=== PATIENT | male | born 1990 | race Caucasian/White ===

== ENCOUNTER 2021-01-16 12:13 | Emergency (ER) | payer MEDICAID ==
[~2021-01-16] VITALS: Ht 180.3 cm; Wt 86.4 kg
[2021-01-16 13:38] LABS: BASOPHILS # (AUTO) 0.1 X10'3 (0-0.2); BASOPHILS % (AUTO) 0.6 % (0-1); EOSINOPHILS % (AUTO) 0.5 % (0-6); HEMATOCRIT 45.8 % (42.0-52.0); HEMOGLOBIN 15.6 g/dl (14.0-17.9); LYMPHOCYTES # (AUTO) 1.3 X10'3 (1.1-4.8); LYMPHOCYTES % (AUTO) 13.8 % (21-51); MEAN CORPUSCULAR HEMOGLOBIN 30.2 PG (27.0-31.0); MEAN CORPUSCULAR HGB CONC 34.2 g/dL (33.0-36.5); MEAN CORPUSCULAR VOLUME 88.3 FL (78-98); MEAN PLATELET VOLUME 7.6 FL (7.4-10.4); MONOCYTES # (AUTO) 0.5 X10'3 (0-0.9); MONOCYTES % (AUTO) 5.2 % (2-12); NEUTROPHILS # (AUTO) 7.8 X10'3 (1.8-7.7); NEUTROPHILS % (AUTO) 79.9 % (42-75); PLATELET COUNT 345 X10'3 (140-440); RED BLOOD COUNT 5.18 X10'6 (4.70-6.10); RED CELL DISTRIBUTION WIDTH 13.2 % (11.5-14.5); WHITE BLOOD COUNT 9.8 X10'3 (4.5-11.0)
[2021-01-16 13:54] LABS: ALANINE AMINOTRANSFERASE 126 U/L (12-78); ALBUMIN 4.6 G/DL (3.4-5.0); ALBUMIN/GLOBULIN RATIO 1.2 (1.1-1.5); ALKALINE PHOSPHATASE 78 IU/L (46-116); ANION GAP 13 (8-16); ASPARTATE AMINO TRANSFERASE 53 U/L (10-37); BILIRUBIN,TOTAL 0.6 MG/DL (0.1-1.0); BLOOD UREA NITROGEN 12 MG/DL (7-18); BUN/CREATININE RATIO 10.6 (5.4-32.0); CALCIUM 9.5 MG/DL (8.5-10.1); CHLORIDE 108 MMOL/L (99-107); CREATININE 1.13 MG/DL (0.60-1.10); ETHANOL < 0.010 GM/DL (0.0-0.010); GLUCOSE 114 MG/DL (70-104); POTASSIUM 3.9 MMOL/L (3.5-5.1); SODIUM 144 MMOL/L (135-145); TOTAL CARBON DIOXIDE 23.3 MMOL/L (24-32); TOTAL PROTEIN 8.4 G/DL (6.4-8.2); eGFR 76 ML/MIN
[2021-01-16 13:55] VITALS: BP 129/85
[2021-01-16 14:36] LABS: URINE AMPHETAMINE SCREEN NEGATIVE (Neg); URINE BARBITUATE SCREEN NEGATIVE (Neg); URINE BENZODIAZEPINES SCREEN NEGATIVE (Neg); URINE CANNABINOID SCREEN NEGATIVE (Neg); URINE COCAINE SCREEN NEGATIVE (Neg); URINE METHADONE SCREEN NEGATIVE (Neg); URINE OPIATE SCREEN NEGATIVE (Neg); URINE PHENCYCLIDINE SCREEN NEGATIVE (Neg)
--- NOTE | 2021-01-16 14:57 | NUR ---
[employer]IT[employer]PER[employer] PICKED UP THROWING KNIVES
[2021-01-16] MEDS ORDERED: MULT-227 PO (14:59)
[2021-01-16] MEDS ORDERED: 5-HY100C PO (14:59)
--- NOTE | 2021-01-16 18:50 | NUR ---
Assumed care of patient, received report from Barbara DELCID, introduced myself to the patient and he had no needs at this time except for wanting dinner.
--- NOTE | 2021-01-16 19:45 | NUR ---
Met with patient for assessment, he continues to make delusional statements that are paranoid in nature, refers to "them always doing things to me", refers to navid, talks about people monitoring him thru his cell phone, that they "know I am coming from the ping on my phone and then they switch the food out and give me things with no nutrients, like the milk, its a different color, I can tell." When I asked if he had ever seen mental health he said no, but later talked about seeing psychologists and therapists and that he has been called "Schizo", "but I am not, I am just playing the cards" denies hallucinations. Pt has no other complaints, spoke with [facility] and they will not be able to assess patient until tomorrow.
--- NOTE | 2021-01-16 19:45 | NUR ---
Review of patients 5150 states pt is DTS, police were called because pt was walking in the road and multiple cars were honking at the patient and he would not move, he continued to walk in traffic even after the police tried to direct him to get off the road, he told the police he couldn't see the cars because he was in an alternate universe, he also stated the cars always "yell" at him.
--- NOTE | 2021-01-16 21:20 | NUR ---
Berenice alexander in [facility] - 01/17/21 at 0414 by KASSY Pt reported improvement in headache without Tylenol.
--- NOTE | 2021-01-16 21:48 | NUR ---
Pt is interacting with me at this time, is appropriate, but continues to make delusional statements, no agitation. He is complaining of a H/A and is requesting some Tylenol for a headache. Will notify .
--- NOTE | 2021-01-16 22:20 | NUR ---
Pt reports improvement in H/A without use of Tylenol.
[2021-01-17] MEDS ORDERED: NO HOME MEDS (00:15)
--- NOTE | 2021-01-17 00:19 | NUR ---
Pt resting comfortably at this time, no complaints
--- NOTE | 2021-01-17 01:54 | NUR ---
Pt is sleeping at this time
--- NOTE | 2021-01-17 04:12 | NUR ---
Pt continues to sleep at this time, appears in no distress.
--- NOTE | 2021-01-17 07:00 | NUR ---
Received pt lying in bed with his eyes closed, in no apparent distress, appearing asleep.
--- NOTE | 2021-01-17 07:12 | NUR ---
PACKET FAXED TO [facility]
--- NOTE | 2021-01-17 09:00 | NUR ---
Pt awoke and used the bathroom and gave urine sample. Pt is polite and cooperative and is agreeable with am assessment. Pt is hyperverbal and tangential. Thought content is mostly delusional with paranoid thoughts that people have been "gas lighting" him. Just messing with him and taking the nutrients out of his food.
[2021-01-17 09:21] LABS: CLARITY,URINE CLEAR (Clear); COLOR,URINE YELLOW (Yellow); GLUCOSE, URINE NEGATIVE (Neg); KETONES,URINE NEGATIVE (Neg); LEUKOCYTE ESTERASE ,URINE NEGATIVE (Neg); NITRITES, URINE NEGATIVE (Neg); OCCULT BLOOD,URINE NEGATIVE (Neg); PH,URINE 6.5 (4.8-8.0); PROTEIN,URINE NEGATIVE (Neg); UROBILINOGEN,URINE 0.2 E.U/dL (0.2-1.0)
[2021-01-17 09:25] LABS: UA COLLECTION TYPE CLN CATCH MIDSTREAM
--- NOTE | 2021-01-17 11:00 | NUR ---
Pt cooperative with assessment by [facility]. Pt directed alliance consultant to contact his mom or grandmother, but contact was unable to be made and thus [facility] found pt to be danger to self and upheld the 5150. Pt agreeable to placement at mental health facility.
--- NOTE | 2021-01-17 12:32 | NUR ---
PT HAS BEEN ACCEPTED TO [facility].
--- NOTE | 2021-01-17 13:00 | NUR ---
Pt lying quietly in bed and now is up eating lunch. No complaints. Pt has been accepted at [facility].
== END 2021-01-17 14:45 ==
LOC: ER 12:14
DX: F20.0 Paranoid schizophrenia (principal); Z20.822 Contact with and (suspected) exposure to COVID-19
CPT/HCPCS: 36415; 80053; 80305; 80320; 81003; 84443; 85025; 87635; 99285; C9803